=== PATIENT | female | born 1945 | race Caucasian/White ===

== ENCOUNTER 2019-04-17 10:56 | Emergency (ER) | payer MEDICARE ==
[~2019-04-17 10:56] MED LIST: ALBU8.5H8 IH; BISO1TAB8 PO; ESOM40CA49 PO; FURO40TA4 PO; LANTUS SQ; LOPE-190; METF-436 PO; MONT10TA24 PO; PIOG45TA65 PO; POTA10TA10 PO; SYRI-641; [UNRECOGNIZED DRUG - OTHER] PO
[2019-04-17] MEDS ORDERED: LIDOcaine 1% w/epiNEPHrine 1:200,000 30ml vial IM ONE (13:30)
[2019-04-17] MEDS ORDERED: sulfamethoxazole/trimethoprim DS (800/160mg) tablet PO ONE (14:15)
[2019-04-17] MEDS ORDERED: SULF1TAB49 PO (14:30)
[2019-04-17 14:45] VITALS: BP 166/68
== END 2019-04-17 14:47 | disposition home or self-care (01) ==
LOC: ER 11:43
DX: L02.414 Cutaneous abscess of left upper limb (principal); I25.10 Atherosclerotic heart disease of native coronary artery without angina pectoris; I50.9 Heart failure, unspecified; J44.9 Chronic obstructive pulmonary disease, unspecified; E11.9 Type 2 diabetes mellitus without complications; Z90.49 Acquired absence of other specified parts of digestive tract; Z90.710 Acquired absence of both cervix and uterus; Z98.890 Other specified postprocedural states; Z87.891 Personal history of nicotine dependence; Z88.5 Allergy status to narcotic agent; Z79.4 Long term (current) use of insulin; Z79.84 Long term (current) use of oral hypoglycemic drugs; Z79.899 Other long term (current) drug therapy
CPT/HCPCS: 10060; 99283

== ENCOUNTER 2019-04-20 11:00 | Outpatient (CLI) | payer MEDICARE ==
[~2019-04-20 11:00] MED LIST changes: +SULF1TAB49 PO
== END 2019-04-20 23:59 | disposition home or self-care (01) ==
LOC: LAB SPEC 11:00
PROVIDERS: ATTEND Orthopaedic Surgery
DX: S41.002A Unspecified open wound of left shoulder, initial encounter (principal); I11.0 Hypertensive heart disease with heart failure; I50.9 Heart failure, unspecified; J44.9 Chronic obstructive pulmonary disease, unspecified; E11.9 Type 2 diabetes mellitus without complications; X58.XXXA Exposure to other specified factors, initial encounter; Y93.89 Activity, other specified; Y92.89 Other specified places as the place of occurrence of the external cause; Y99.8 Other external cause status
CPT/HCPCS: 87070; 87075

== ENCOUNTER 2020-04-29 13:17 | Emergency (ER) | payer MEDICARE ==
[~2020-04-29] VITALS: Ht 160 cm; Wt 63.6 kg
[~2020-04-29 13:17] MED LIST changes: -MONT10TA24 PO; +MONT10TA26 PO; -SULF1TAB49 PO
--- NOTE | 2020-04-29 14:00 | NUR ---
PT IS 74 YO FEMALE C/O CAT BITE TO RT LOWER LEG 1 WEEK AGO, HAS BEEN EVALUATED BY PMD AND PRESCRIBED 2 ANTIBIOTIC, PT HAS BEEN COMPLIANT WITH TAKING MEDICATION PRESCRIBED AND SAID SWELLING AND REDNESS TO RT ANKLE IS IMPROVING BUT SHE WOULD LIKE RABIES SHOT, PT SAID CAT BELONGS TO HER AND HER GRANDSON, HAS NEVER HAD VACCINATIONS, IS NOW "SICK...NOT EATING, VOMITING", PT IS WAITING TO BE EVALUATED BY PROVIDER
--- NOTE | 2020-04-29 14:01 | NUR ---
PT ALSO C/O FEVER AT HOME RANGING FROM 98 TO 99DEGREES
[2020-04-29] MEDS ORDERED: rabies immune globulin/PF 150 unit/ml inj IMVAC STA (14:18)
[2020-04-29] MEDS ORDERED: rabies vaccine (PCEC)/PF 2.5 unit kit IMVAC ONE (14:20)
[2020-04-29 15:52] VITALS: BP 105/82
== END 2020-04-29 15:54 | disposition home or self-care (01) ==
LOC: ER 13:18
DX: S81.831A Puncture wound without foreign body, right lower leg, initial encounter (principal); L03.115 Cellulitis of right lower limb; M79.671 Pain in right foot; M25.471 Effusion, right ankle; I25.10 Atherosclerotic heart disease of native coronary artery without angina pectoris; I50.9 Heart failure, unspecified; J44.9 Chronic obstructive pulmonary disease, unspecified; E11.9 Type 2 diabetes mellitus without complications; Z90.89 Acquired absence of other organs; Z90.49 Acquired absence of other specified parts of digestive tract; Z90.710 Acquired absence of both cervix and uterus; Z98.890 Other specified postprocedural states; Z88.5 Allergy status to narcotic agent; Z79.4 Long term (current) use of insulin; Z79.899 Other long term (current) drug therapy; W55.01XA Bitten by cat, initial encounter; Y93.89 Activity, other specified; Y92.89 Other specified places as the place of occurrence of the external cause; Y99.8 Other external cause status
CPT/HCPCS: 90375; 90471; 90675; 96372; 99284

== ENCOUNTER 2020-05-02 08:36 | Emergency (ER) | payer MEDICARE ==
[~2020-05-02] VITALS: Ht 160 cm; Wt 63.6 kg
[2020-05-02] MEDS ORDERED: rabies vaccine (PCEC)/PF 2.5 unit kit IMVAC ONE (09:15)
[2020-05-02 09:36] VITALS: BP 137/62
== END 2020-05-02 09:37 | disposition home or self-care (01) ==
LOC: ER 08:37
DX: R50.9 Fever, unspecified (principal); M79.89 Other specified soft tissue disorders; W55.01XD Bitten by cat, subsequent encounter; Y93.89 Activity, other specified; Y92.89 Other specified places as the place of occurrence of the external cause; Y99.8 Other external cause status
CPT/HCPCS: 90471; 90675; 99281

== ENCOUNTER 2020-05-06 09:16 | Emergency (ER) | payer MEDICARE ==
[~2020-05-06] VITALS: Ht 160 cm; Wt 64.6 kg
[2020-05-06] MEDS ORDERED: rabies vaccine (PCEC)/PF 2.5 unit kit IMVAC ONE (11:05)
[2020-05-06 11:28] VITALS: BP 159/70
== END 2020-05-06 11:29 | disposition home or self-care (01) ==
LOC: ER 09:16
DX: S91.032D Puncture wound without foreign body, left ankle, subsequent encounter (principal); I25.10 Atherosclerotic heart disease of native coronary artery without angina pectoris; I50.9 Heart failure, unspecified; J44.9 Chronic obstructive pulmonary disease, unspecified; E11.9 Type 2 diabetes mellitus without complications; Z90.89 Acquired absence of other organs; Z90.49 Acquired absence of other specified parts of digestive tract; Z90.710 Acquired absence of both cervix and uterus; Z98.890 Other specified postprocedural states; Z88.5 Allergy status to narcotic agent; Z79.4 Long term (current) use of insulin; Z79.899 Other long term (current) drug therapy; W55.01XD Bitten by cat, subsequent encounter
CPT/HCPCS: 90471; 90675; 99281

== ENCOUNTER 2020-05-13 11:04 | Emergency (ER) | payer MEDICARE ==
[2020-05-13 11:44] VITALS: BP 160/70
[2020-05-13] MEDS ORDERED: rabies vaccine (PCEC)/PF 2.5 unit kit IMVAC ONE (13:05)
--- NOTE | 2020-05-13 13:45 | NUR ---
Patient seen and assessed by provider.
== END 2020-05-13 14:03 | disposition home or self-care (01) ==
LOC: ER 11:43
DX: S81.851D Open bite, right lower leg, subsequent encounter (principal); I25.10 Atherosclerotic heart disease of native coronary artery without angina pectoris; I50.9 Heart failure, unspecified; J44.9 Chronic obstructive pulmonary disease, unspecified; E11.9 Type 2 diabetes mellitus without complications; Z90.89 Acquired absence of other organs; Z90.49 Acquired absence of other specified parts of digestive tract; Z90.710 Acquired absence of both cervix and uterus; Z98.890 Other specified postprocedural states; Z88.5 Allergy status to narcotic agent; Z79.4 Long term (current) use of insulin; Z79.899 Other long term (current) drug therapy; X58.XXXD Exposure to other specified factors, subsequent encounter
CPT/HCPCS: 90471; 90675; 99281

== ENCOUNTER 2022-09-07 12:04 | Inpatient (IN) | payer MEDICARE ==
[~2022-09-07] VITALS: Ht 157.5 cm; Wt 63.5 kg
[~2022-09-07 12:04] MED LIST changes: +ADV50250 IH; +ALBU8.5H17 IH; -ALBU8.5H8 IH; +ATOR40TA72 PO; +BISO-2 PO; -BISO1TAB8 PO; +INSU100V41 SUBCUT; +IPRA3AMP31 NEB; +LACT1TAB11 PO; -LANTUS SQ; -LOPE-190; +LOSA50TA64 PO; -METF-436 PO; +MONT-40 PO; -MONT10TA26 PO; +NOVLG SQ; -PIOG45TA65 PO; +POTA-188 PO; -POTA10TA10 PO; +SEMA0.25 SUBCUT; -SYRI-641; -[UNRECOGNIZED DRUG - OTHER] PO
[2022-09-07 12:28] LABS: BASOPHILS # (AUTO) 0.1 X10'3 (0-0.2); HEMATOCRIT 41.5 % (35.0-45.0)
[2022-09-07 12:29] LABS: BASOPHILS % (AUTO) 0.2 % (0-1); EOSINOPHILS % (AUTO) 0.1 % (0-6); HEMOGLOBIN 13.5 g/dl (12.0-16.0); MEAN CORPUSCULAR HEMOGLOBIN 28.8 PG (27.0-31.0); MEAN CORPUSCULAR HGB CONC 32.4 g/dL (33.0-36.5); MEAN CORPUSCULAR VOLUME 88.7 FL (78-98); MEAN PLATELET VOLUME 7.8 FL (7.4-10.4); MONOCYTES # (AUTO) 2.8 X10'3 (0-0.9); MONOCYTES % (AUTO) 8.5 % (2-12); NEUTROPHILS # (AUTO) 28.9 X10'3 (1.8-7.7); NEUTROPHILS % (AUTO) 88.2 % (42-75); PLATELET COUNT 706 X10'3 (140-440); RED BLOOD COUNT 4.68 X10'6 (4.20-5.60); RED CELL DISTRIBUTION WIDTH 14.9 % (11.5-14.5)
[2022-09-07 12:42] LABS: WHITE BLOOD COUNT 32.7 X10'3 (4.5-11.0)
[2022-09-07] MEDS ORDERED: normal saline 1000ML IV soln IV ONE (12:45)
[2022-09-07] MEDS ORDERED: vancomycin/NS 1 GM ADD-VANTAGE 250 ML IV ONE (12:45)
[2022-09-07 12:53] LABS: ALANINE AMINOTRANSFERASE 48 U/L (12-78); ALBUMIN 2.4 G/DL (3.4-5.0); ALBUMIN/GLOBULIN RATIO 0.5 (1.1-1.5); ALKALINE PHOSPHATASE 135 IU/L (46-116); ANION GAP 9 (8-16); ASPARTATE AMINO TRANSFERASE 31 U/L (10-37); BILIRUBIN,TOTAL 0.4 MG/DL (0.1-1.0); BLOOD UREA NITROGEN 23 MG/DL (7-18); BUN/CREATININE RATIO 32.9 (6.6-38.0); CALCIUM 9.9 MG/DL (8.5-10.1); CHLORIDE 93 MMOL/L (99-107); GLUCOSE 262 MG/DL (70-104); POTASSIUM 3.9 MMOL/L (3.5-5.1); SODIUM 131 MMOL/L (135-145); TOTAL CARBON DIOXIDE 29.2 MMOL/L (24-32); TOTAL PROTEIN 6.9 G/DL (6.4-8.2); eGFR 81 ML/MIN
[2022-09-07] MEDS ORDERED: cefTAZidime inj 2 GM in normal saline 100ml IV soln 100 ML IV STA (12:59)
[2022-09-07 13:08] LABS: PLATELET ESTIMATE INCREASED; TOTAL CELLS COUNTED 100
[2022-09-07] MEDS ORDERED: ipratropium/albuterol 3ml nebule NEB ONE (13:20)
[2022-09-07] MEDS ORDERED: methylPREDNISolone sod succ 125mg/2ml vial IV ONE (13:20)
[2022-09-07] MEDS ORDERED: ipratropium/albuterol 3ml nebule NEB PRN (14:05)
[2022-09-07] MEDS ORDERED: acetaminophen 650mg rectal suppository RC PRN (14:05)
[2022-09-07] MEDS ORDERED: HYDROmorphone inj. 0.5 MG/0.5 ML DISP.SYRIN IV PRN (14:05)
[2022-09-07] MEDS ORDERED: magnesium hydroxide 30ml (MOM) UD suspension PO PRN (14:05)
[2022-09-07] MEDS ORDERED: potassium Cl 20 mEq SR tablet PO PRN (14:05)
[2022-09-07] MEDS ORDERED: ondansetron/PF 4mg/2ml inj IV PRN (14:05)
[2022-09-07] MEDS ORDERED: HYDROmorphone/PF 0.2 MG/ML SYRINGE IV PRN (14:05)
[2022-09-07] MEDS ORDERED: HYDROcodone/acetaminophen 5mg/325mg tablet PO PRN (14:05)
[2022-09-07] MEDS ORDERED: normal saline 1000ml 1,000 ML IV SCH (14:05)
[2022-09-07] MEDS ORDERED: potassium Cl 40MEQ/1/2NS 520ml 520 ML IV PRN (14:05)
[2022-09-07] MEDS ORDERED: mag hydrox/Alum hydrox/simeth 30ml oral suspension PO PRN (14:05)
[2022-09-07] MEDS ORDERED: metoclopramide 5 mg/ml inj IV PRN (14:05)
[2022-09-07] MEDS ORDERED: magnesium 4gm in 100ml NS 100 ML IV PRN (14:05)
[2022-09-07] MEDS ORDERED: HYDROcodone/acetaminophen 10/325mg tab PO PRN (14:05)
[2022-09-07] MEDS ORDERED: ondansetron 4mg rapidly disintigrating tab PO PRN (14:05)
[2022-09-07] MEDS ORDERED: acetaminophen 325mg tablet PO PRN ×2 (14:05)
[2022-09-07] MEDS ORDERED: magnesium Cl slow-release 64mg tablet PO PRN (14:05)
[2022-09-07] MEDS ORDERED: bisacodyl 10mg suppository rectal RC PRN (14:05)
--- NOTE | 2022-09-07 14:44 | NUR ---
Dr. Portillo at bedside.
[2022-09-07] MEDS: ipratropium/albuterol 3ml nebule NEB SCH ×3 (15:00→23:40)
[2022-09-07] MEDS ORDERED: furosemide 40mg/4ml inj IV ONE (15:45)
[2022-09-07] MEDS ORDERED: MESSAGE TO PHARMACY PO ONE (15:45)
[2022-09-07] MEDS ORDERED: PERFLUTREN PROTEIN-A MICROSPHR (Optison) 0.22 MG/ML 3ML VIAL IV ONE (15:45)
[2022-09-07] MEDS ORDERED: DEXTROSE 15 GM of carb/4 tabs (each vial/BOTTLE has 4 tablets) PO PRN ×2 (15:45)
[2022-09-07] MEDS ORDERED: dextrose 50%-water 50ml dispensing syringe IV PRN ×2 (15:45)
[2022-09-07] MEDS ORDERED: glucagon, human recombinant 1mg kit SUBCUT PRN (15:45)
[2022-09-07 15:57] LABS: MAGNESIUM 1.6 MG/DL (1.5-2.4)
[2022-09-07] MEDS: cefTAZidime inj. 1 GM in normal saline 100ml IV soln 100 ML IV SCH (16:00)
[2022-09-07] MEDS ORDERED: INSU100I31 SQ (17:45)
[2022-09-07] MEDS ORDERED: CEFD300C21 PO (17:45)
[2022-09-07] MEDS ORDERED: AMLO-708 PO (17:45)
[2022-09-07] MEDS ORDERED: FLUT200B3 INH (17:45)
[2022-09-07] MEDS ORDERED: BISO-2 PO (17:45)
[2022-09-07] MEDS ORDERED: BISO5TAB29 PO (17:45)
[2022-09-07] MEDS ORDERED: FURO40TA4 PO (17:46)
[2022-09-07] MEDS ORDERED: POTA-188 PO (17:46)
[2022-09-07] MEDS ORDERED: PRED10TA PO (17:49)
[2022-09-07] MEDS: furosemide 40mg/4ml inj IV SCH (19:40)
[2022-09-07] MEDS: docusate sod 100mg capsule PO SCH (20:00)
[2022-09-07] MEDS: K and/or MAG REPLACEMENT MC SCH (20:13)
[2022-09-07] MEDS: insulin glargine (Lantus) pen - multi-dose SQ SCH (20:29)
[2022-09-07] MEDS: methylPREDNISolone sod succ 125mg/2ml vial IV SCH (20:29)
[2022-09-07] MEDS ORDERED: temazepam 15mg capsule PO PRN (21:00)
[2022-09-08] MEDS: cefTAZidime inj. 1 GM in normal saline 100ml IV soln 100 ML IV SCH ×3 (00:18→16:00)
[2022-09-08] MEDS: methylPREDNISolone sod succ 125mg/2ml vial IV SCH ×4 (02:00→21:23)
[2022-09-08 03:40] LABS: MEAN CORPUSCULAR HEMOGLOBIN 29.3 PG (27.0-31.0); MEAN PLATELET VOLUME 7.8 FL (7.4-10.4)
[2022-09-08 03:42] LABS: BASOPHILS # (AUTO) 0.1 X10'3 (0-0.2); BASOPHILS % (AUTO) 0.8 % (0-1); EOSINOPHILS % (AUTO) 0 % (0-6); HEMATOCRIT 39.4 % (35.0-45.0); HEMOGLOBIN 13.2 g/dl (12.0-16.0); LYMPHOCYTES # (AUTO) 0.6 X10'3 (1.1-4.8); LYMPHOCYTES % (AUTO) 4.2 % (21-51); MEAN CORPUSCULAR HGB CONC 33.5 g/dL (33.0-36.5); MEAN CORPUSCULAR VOLUME 87.5 FL (78-98); MONOCYTES # (AUTO) 0.4 X10'3 (0-0.9); MONOCYTES % (AUTO) 2.7 % (2-12); NEUTROPHILS # (AUTO) 13.9 X10'3 (1.8-7.7); NEUTROPHILS % (AUTO) 92.3 % (42-75); PLATELET COUNT 625 X10'3 (140-440); RED CELL DISTRIBUTION WIDTH 15.2 % (11.5-14.5); WHITE BLOOD COUNT 15.1 X10'3 (4.5-11.0)
[2022-09-08] MEDS: ipratropium/albuterol 3ml nebule NEB SCH ×6 (03:51→23:55)
[2022-09-08 03:58] LABS: ALANINE AMINOTRANSFERASE 48 U/L (12-78); ALBUMIN 2.3 G/DL (3.4-5.0); ALBUMIN/GLOBULIN RATIO 0.5 (1.1-1.5); ALKALINE PHOSPHATASE 131 IU/L (46-116); ANION GAP 7 (8-16); ASPARTATE AMINO TRANSFERASE 26 U/L (10-37); BILIRUBIN,TOTAL 0.3 MG/DL (0.1-1.0); BLOOD UREA NITROGEN 23 MG/DL (7-18); BUN/CREATININE RATIO 27.4 (6.6-38.0); CALCIUM 9.3 MG/DL (8.5-10.1); CHLORIDE 96 MMOL/L (99-107); CHOL/HDL RATIO 1.9 (0.00-4.99); CHOLESTEROL 122 MG/DL (0-200); CREATININE 0.84 MG/DL (0.40-0.90); GLUCOSE 342 MG/DL (70-104); HDL CHOLESTEROL 65 MG/DL (35-60); LDL CHOLESTEROL 43 MG/DL (50-100); PHOSPHORUS 3.3 MG/DL (2.3-4.5); SODIUM 137 MMOL/L (135-145); TOTAL CARBON DIOXIDE 34.2 MMOL/L (24-32); TOTAL PROTEIN 6.6 G/DL (6.4-8.2); TRIGLYCERIDES 100 MG/DL (20-135); eGFR 66 ML/MIN
[2022-09-08 05:26] LABS: HEMOGLOBIN A1C 8.4 % (4.5-6.2)
--- NOTE | 2022-09-08 07:05 | NUR ---
report from janak acevedo for continaution of care. pt is awake ao4 deneis any chest discomfort at this time. resp even unlabored skin w/d/i pink.
[2022-09-08] MEDS: docusate sod 100mg capsule PO SCH ×2 (08:00→20:00)
[2022-09-08] MEDS: K and/or MAG REPLACEMENT MC SCH ×2 (08:00→20:00)
[2022-09-08] MEDS: furosemide 40mg/4ml inj IV SCH ×2 (09:16→21:29)
[2022-09-08] MEDS: enoxaparin 40mg/0.4ml syringe SUBCUT SCH (09:17)
[2022-09-08] MEDS: insulin Lispro (HumaLOG) vial - multi-dose SQ SCH ×3 (09:57→18:13)
--- NOTE | 2022-09-08 10:55 | NUR ---
report to janak daniel for continuation of care.
--- NOTE | 2022-09-08 11:05 | NUR ---
Patient in ER. I have received report from SURJIT Segovia and had the opportunity to ask questions and will assume assume patient care when pt arrives to room 1340A.
[2022-09-08 11:10] VITALS: BP 140/69
--- NOTE | 2022-09-08 11:10 | NUR ---
VSS, pt is in room 1340A, pt is in no distress at this time, call light within pt's reach and pt is comfortable in bed.
[2022-09-08] MEDS ORDERED: ALBU17AE26 PO (11:42)
[2022-09-08] MEDS ORDERED: ASPI-611 PO (11:45)
[2022-09-08] MEDS ORDERED: LOSA50TA3 PO (11:45)
[2022-09-08] MEDS: vancomycin/NS 1 GM ADD-VANTAGE 250 ML IV SCH (13:25)
[2022-09-08 14:39] VITALS: BP 126/55
[2022-09-08 17:42] VITALS: BP 147/53
[2022-09-08 18:00] VITALS: BP 173/50
--- NOTE | 2022-09-08 18:10 | NUR ---
Problems reprioritized. Patient report given, questions answered & plan of care reviewed with SURJIT Conde, pt will be going to room 345B.
--- NOTE | 2022-09-08 18:15 | NUR ---
VSS, pt is in room #345B, all pt belongings transferred with pt, pt is in the bed and in no distress at this time, call light within pt's reach and pt is comfortable at this time.
--- NOTE | 2022-09-08 19:00 | NUR ---
Patient in room [facility]. I have received report from SURJIT Lantigua and had the opportunity to ask questions and assume patient care.
[2022-09-08] MEDS: insulin glargine (Lantus) pen - multi-dose SQ SCH (21:00)
[2022-09-08 22:00] VITALS: BP 139/65
[2022-09-09] MEDS: cefTAZidime inj. 1 GM in normal saline 100ml IV soln 100 ML IV SCH ×3 (00:39→16:25)
[2022-09-09] MEDS: methylPREDNISolone sod succ 125mg/2ml vial IV SCH ×4 (02:10→19:29)
[2022-09-09] MEDS: ipratropium/albuterol 3ml nebule NEB SCH ×6 (03:06→23:20)
[2022-09-09 06:16] LABS: EOSINOPHILS % (AUTO) 0 % (0-6); HEMOGLOBIN 12.2 g/dl (12.0-16.0)
[2022-09-09 06:19] LABS: BASOPHILS # (AUTO) 0.1 X10'3 (0-0.2); BASOPHILS % (AUTO) 0.4 % (0-1); HEMATOCRIT 38.3 % (35.0-45.0); LYMPHOCYTES # (AUTO) 0.8 X10'3 (1.1-4.8); LYMPHOCYTES % (AUTO) 3.4 % (21-51); MEAN CORPUSCULAR HEMOGLOBIN 28.3 PG (27.0-31.0); MEAN CORPUSCULAR VOLUME 88.6 FL (78-98); MONOCYTES # (AUTO) 0.6 X10'3 (0-0.9); MONOCYTES % (AUTO) 2.4 % (2-12); NEUTROPHILS # (AUTO) 21.8 X10'3 (1.8-7.7); NEUTROPHILS % (AUTO) 93.8 % (42-75); PLATELET COUNT 665 X10'3 (140-440); RED BLOOD COUNT 4.32 X10'6 (4.20-5.60); RED CELL DISTRIBUTION WIDTH 15.5 % (11.5-14.5); WHITE BLOOD COUNT 23.3 X10'3 (4.5-11.0)
--- NOTE | 2022-09-09 06:33 | NUR ---
Problems reprioritized. Patient report given, questions answered & plan of care reviewed with SURJIT Diaz.
[2022-09-09 07:00] VITALS: BP 157/61
[2022-09-09 07:07] LABS: ALANINE AMINOTRANSFERASE 46 U/L (12-78); ALBUMIN 2.4 G/DL (3.4-5.0); ALBUMIN/GLOBULIN RATIO 0.6 (1.1-1.5); ALKALINE PHOSPHATASE 115 IU/L (46-116); ANION GAP 9 (8-16); ASPARTATE AMINO TRANSFERASE 30 U/L (10-37); BILIRUBIN,TOTAL 0.3 MG/DL (0.1-1.0); BLOOD UREA NITROGEN 28 MG/DL (7-18); BUN/CREATININE RATIO 42.4 (6.6-38.0); CALCIUM 9.9 MG/DL (8.5-10.1); CHLORIDE 96 MMOL/L (99-107); CREATININE 0.66 MG/DL (0.40-0.90); GLUCOSE 161 MG/DL (70-104); PHOSPHORUS 2.8 MG/DL (2.3-4.5); POTASSIUM 3.2 MMOL/L (3.5-5.1); SODIUM 136 MMOL/L (135-145); TOTAL CARBON DIOXIDE 31.1 MMOL/L (24-32); TOTAL PROTEIN 6.3 G/DL (6.4-8.2); eGFR 87 ML/MIN
[2022-09-09] MEDS: furosemide 40mg/4ml inj IV SCH ×2 (07:57→19:29)
[2022-09-09] MEDS: docusate sod 100mg capsule PO SCH ×2 (08:00→19:32)
[2022-09-09] MEDS: K and/or MAG REPLACEMENT MC SCH ×2 (08:00→20:00)
[2022-09-09] MEDS: enoxaparin 40mg/0.4ml syringe SUBCUT SCH (08:00)
[2022-09-09] MEDS: insulin Lispro (HumaLOG) vial - multi-dose SQ SCH ×3 (09:17→19:25)
--- NOTE | 2022-09-09 10:40 | NUR ---
DM Consult: Pt hx T2DM A1C 8.4% on albuterol inhaler at home in addition to Novolog, tresiba daily, and ozempic Q7D per EMR. A1C appropriate given pt age; DM ed deferred at this time. Addendum: 09/09/22 at [address] Amended: Links added.
[2022-09-09 11:00] VITALS: BP 139/47
[2022-09-09] MEDS: vancomycin/NS 1 GM ADD-VANTAGE 250 ML IV SCH (14:08)
[2022-09-09] MEDS: potassium Cl 20 mEq SR tablet PO PRN ×2 (16:25→21:48)
[2022-09-09 18:00] VITALS: BP 151/58
--- NOTE | 2022-09-09 18:24 | NUR ---
Problems reprioritized. Patient report given, questions answered & plan of care reviewed with SURJIT Nugent.
--- NOTE | 2022-09-09 18:26 | NUR ---
Patient in room [facility]. I have received report from AGUILAR EDDY and had the opportunity to ask questions and assume patient care.
[2022-09-09] MEDS: insulin glargine (Lantus) pen - multi-dose SQ SCH (21:00)
--- NOTE | 2022-09-09 21:00 | NUR ---
PATIENT REFUSED LANTUS. EDUCATED PATIENT CONCERNING DANGERS OF HYPERGLYCEMIA.
[2022-09-09 22:00] VITALS: BP 161/68
[2022-09-10] MEDS: methylPREDNISolone sod succ 125mg/2ml vial IV SCH ×2 (02:30→09:03)
[2022-09-10] MEDS: ipratropium/albuterol 3ml nebule NEB SCH ×6 (03:13→23:43)
[2022-09-10 06:00] VITALS: BP_SYST 125; BP_SYST 151; BP_DIAS 55; BP_DIAS 61
--- NOTE | 2022-09-10 06:13 | NUR ---
Problems reprioritized. Patient report given, questions answered & plan of care reviewed with AGUILAR EDDY.
[2022-09-10 06:23] LABS: EOSINOPHILS % (AUTO) 0 % (0-6)
[2022-09-10 06:26] LABS: BASOPHILS % (AUTO) 0.1 % (0-1); HEMATOCRIT 39.1 % (35.0-45.0); LYMPHOCYTES # (AUTO) 0.7 X10'3 (1.1-4.8); LYMPHOCYTES % (AUTO) 2.9 % (21-51); MEAN CORPUSCULAR HEMOGLOBIN 29.2 PG (27.0-31.0); MEAN CORPUSCULAR HGB CONC 33.2 g/dL (33.0-36.5); MEAN CORPUSCULAR VOLUME 87.9 FL (78-98); MEAN PLATELET VOLUME 7.6 FL (7.4-10.4); MONOCYTES # (AUTO) 0.4 X10'3 (0-0.9); MONOCYTES % (AUTO) 1.9 % (2-12); NEUTROPHILS # (AUTO) 22.2 X10'3 (1.8-7.7); NEUTROPHILS % (AUTO) 95.1 % (42-75); PLATELET COUNT 757 X10'3 (140-440); RED BLOOD COUNT 4.44 X10'6 (4.20-5.60); RED CELL DISTRIBUTION WIDTH 15.2 % (11.5-14.5); WHITE BLOOD COUNT 23.3 X10'3 (4.5-11.0)
[2022-09-10 06:57] LABS: ALANINE AMINOTRANSFERASE 58 U/L (12-78); ALBUMIN 2.9 G/DL (3.4-5.0); ALBUMIN/GLOBULIN RATIO 0.7 (1.1-1.5); ALKALINE PHOSPHATASE 114 IU/L (46-116); ANION GAP 6 (8-16); ASPARTATE AMINO TRANSFERASE 34 U/L (10-37); BILIRUBIN,TOTAL 0.5 MG/DL (0.1-1.0); BLOOD UREA NITROGEN 30 MG/DL (7-18); CALCIUM 10.1 MG/DL (8.5-10.1); CHLORIDE 97 MMOL/L (99-107); CREATININE 0.81 MG/DL (0.40-0.90); GLUCOSE 240 MG/DL (70-104); MAGNESIUM 2.1 MG/DL (1.5-2.4); PHOSPHORUS 3.2 MG/DL (2.3-4.5); POTASSIUM 4.3 MMOL/L (3.5-5.1); SODIUM 136 MMOL/L (135-145); TOTAL CARBON DIOXIDE 32.8 MMOL/L (24-32); eGFR 68 ML/MIN
[2022-09-10 07:00] VITALS: BP 151/61
[2022-09-10] MEDS: enoxaparin 40mg/0.4ml syringe SUBCUT SCH (08:00)
[2022-09-10] MEDS: docusate sod 100mg capsule PO SCH ×2 (08:00→20:00)
[2022-09-10] MEDS: K and/or MAG REPLACEMENT MC SCH ×2 (08:00→19:41)
[2022-09-10] MEDS: cefTAZidime inj. 1 GM in normal saline 100ml IV soln 100 ML IV SCH ×2 (09:01→20:11)
[2022-09-10] MEDS: furosemide 40mg/4ml inj IV SCH ×2 (09:02→20:11)
[2022-09-10] MEDS: insulin Lispro (HumaLOG) vial - multi-dose SQ SCH ×4 (09:14→18:51)
[2022-09-10 10:00] VITALS: BP 157/32
[2022-09-10] MEDS ORDERED: VANCOMYCIN LEVEL IV ONE (12:30)
[2022-09-10] MEDS: methylPREDNISolone sod succ/PF 40mg inj. IV SCH ×2 (14:19→20:12)
[2022-09-10] MEDS: VANCOmycin 1250MG/NS 250ml Bag 250 ML IV SCH (14:21)
[2022-09-10 18:00] VITALS: BP 159/72
--- NOTE | 2022-09-10 18:18 | NUR ---
Problems reprioritized. Patient report given, questions answered & plan of care reviewed with SURJIT Nugent.
--- NOTE | 2022-09-10 18:33 | NUR ---
Patient in room [facility]. I have received report from AGUILAR EDDY and had the opportunity to ask questions and assume patient care.
[2022-09-10] MEDS: insulin glargine (Lantus) pen - multi-dose SQ SCH (21:00)
--- NOTE | 2022-09-10 21:00 | NUR ---
PATIENT REFUSED TO HAVE LANTUS FOR ACHS BLOOD GLUCOSE. BG 103
[2022-09-10 22:00] VITALS: BP 115/61
[2022-09-11] MEDS: ipratropium/albuterol 3ml nebule NEB SCH ×6 (03:00→23:16)
[2022-09-11 06:00] VITALS: BP 156/64
[2022-09-11 06:08] LABS: EOSINOPHILS % (AUTO) 0 % (0-6); MONOCYTES # (AUTO) 0.7 X10'3 (0-0.9)
[2022-09-11 06:09] LABS: BASOPHILS # (AUTO) 0.2 X10'3 (0-0.2); BASOPHILS % (AUTO) 0.9 % (0-1); HEMATOCRIT 38.8 % (35.0-45.0); HEMOGLOBIN 12.7 g/dl (12.0-16.0); LYMPHOCYTES # (AUTO) 0.7 X10'3 (1.1-4.8); LYMPHOCYTES % (AUTO) 3.3 % (21-51); MEAN CORPUSCULAR HEMOGLOBIN 28.9 PG (27.0-31.0); MEAN CORPUSCULAR HGB CONC 32.8 g/dL (33.0-36.5); MEAN CORPUSCULAR VOLUME 88.3 FL (78-98); MONOCYTES % (AUTO) 3.6 % (2-12); NEUTROPHILS # (AUTO) 18.3 X10'3 (1.8-7.7); NEUTROPHILS % (AUTO) 92.2 % (42-75); PLATELET COUNT 667 X10'3 (140-440); RED BLOOD COUNT 4.39 X10'6 (4.20-5.60); RED CELL DISTRIBUTION WIDTH 14.9 % (11.5-14.5); WHITE BLOOD COUNT 19.9 X10'3 (4.5-11.0)
[2022-09-11 06:22] LABS: ALANINE AMINOTRANSFERASE 50 U/L (12-78); ALBUMIN 2.7 G/DL (3.4-5.0); ALBUMIN/GLOBULIN RATIO 0.8 (1.1-1.5); ALKALINE PHOSPHATASE 107 IU/L (46-116); ANION GAP 3 (8-16); ASPARTATE AMINO TRANSFERASE 26 U/L (10-37); BILIRUBIN,TOTAL 0.4 MG/DL (0.1-1.0); BLOOD UREA NITROGEN 28 MG/DL (7-18); BUN/CREATININE RATIO 33.3 (6.6-38.0); CALCIUM 9.4 MG/DL (8.5-10.1); CHLORIDE 97 MMOL/L (99-107); CREATININE 0.84 MG/DL (0.40-0.90); GLUCOSE 246 MG/DL (70-104); MAGNESIUM 1.9 MG/DL (1.5-2.4); PHOSPHORUS 3.1 MG/DL (2.3-4.5); POTASSIUM 4.1 MMOL/L (3.5-5.1); SODIUM 137 MMOL/L (135-145); TOTAL CARBON DIOXIDE 37.3 MMOL/L (24-32); TOTAL PROTEIN 6.1 G/DL (6.4-8.2); eGFR 66 ML/MIN
--- NOTE | 2022-09-11 06:36 | NUR ---
Problems reprioritized. Patient report given, questions answered & plan of care reviewed with JACQUELYN EDDY.
[2022-09-11] MEDS: enoxaparin 40mg/0.4ml syringe SUBCUT SCH (07:38)
[2022-09-11] MEDS: cefTAZidime inj. 1 GM in normal saline 100ml IV soln 100 ML IV SCH ×2 (07:38→19:34)
[2022-09-11] MEDS: methylPREDNISolone sod succ/PF 40mg inj. IV SCH (07:39)
[2022-09-11] MEDS: furosemide 40mg/4ml inj IV SCH ×2 (07:39→19:34)
[2022-09-11] MEDS: K and/or MAG REPLACEMENT MC SCH ×2 (07:40→19:30)
[2022-09-11] MEDS: docusate sod 100mg capsule PO SCH ×2 (08:00→19:51)
[2022-09-11] MEDS: insulin Lispro (HumaLOG) vial - multi-dose SQ SCH ×3 (09:07→19:37)
--- NOTE | 2022-09-11 09:09 | NUR ---
PT DOES NOT WANT 35 UNITS OF PROTOCOL INSULIN. SHE FEELS ONLY COMFORTABLE W/ 20UNITS. 20UNITS GIVEN PER PT REQUEST.
[2022-09-11 10:00] VITALS: BP 140/60
[2022-09-11] MEDS: VANCOmycin 1250MG/NS 250ml Bag 250 ML IV SCH (14:29)
[2022-09-11] MEDS ORDERED: predniSONE 20 mg tablet PO ONE (14:50)
[2022-09-11] MEDS: pantoprazole 40mg Tablet.DR PO SCH (15:08)
[2022-09-11] MEDS: nystatin 500,000 unit/5ML UD oral suspension PO SCH ×2 (15:49→21:50)
[2022-09-11 18:00] VITALS: BP 160/66
--- NOTE | 2022-09-11 18:28 | NUR ---
Report given back to Tolu EDDY, all questions answered at this time.
--- NOTE | 2022-09-11 19:17 | NUR ---
Patient in room [facility]. I have received report from LANCE Espana RN and had the opportunity to ask questions and assume patient care.
[2022-09-11] MEDS: potassium chloride 10mEq ER tablet PO SCH (19:35)
[2022-09-11] MEDS ORDERED: montelukast 10mg tablet PO SCH (21:00)
[2022-09-11] MEDS: insulin glargine (Lantus) pen - multi-dose SQ SCH (21:00)
--- NOTE | 2022-09-11 21:54 | NUR ---
PATIENT HAS BEEN REFUSING LANTUS. EDUCATED PATIENT.
[2022-09-11 22:00] VITALS: BP 152/60
[2022-09-12] MEDS: ipratropium/albuterol 3ml nebule NEB SCH ×3 (03:00→11:00)
--- NOTE | 2022-09-12 06:21 | NUR ---
Patient in room [facility]. I have received report from layla briceno and had the opportunity to ask questions and assume patient care.
--- NOTE | 2022-09-12 06:26 | NUR ---
Problems reprioritized. Patient report given, questions answered & plan of care reviewed with CLAUDIA EDDY.
[2022-09-12 06:31] VITALS: BP 155/72
[2022-09-12 06:56] LABS: ALANINE AMINOTRANSFERASE 52 U/L (12-78); ALBUMIN 2.8 G/DL (3.4-5.0); ALBUMIN/GLOBULIN RATIO 0.8 (1.1-1.5); ALKALINE PHOSPHATASE 110 IU/L (46-116); ANION GAP 3 (8-16); ASPARTATE AMINO TRANSFERASE 27 U/L (10-37); BILIRUBIN,TOTAL 0.4 MG/DL (0.1-1.0); BLOOD UREA NITROGEN 29 MG/DL (7-18); BUN/CREATININE RATIO 31.9 (6.6-38.0); CALCIUM 9.3 MG/DL (8.5-10.1); CHLORIDE 95 MMOL/L (99-107); CREATININE 0.91 MG/DL (0.40-0.90); GLUCOSE 185 MG/DL (70-104); PHOSPHORUS 2.8 MG/DL (2.3-4.5); POTASSIUM 3.6 MMOL/L (3.5-5.1); SODIUM 136 MMOL/L (135-145); TOTAL CARBON DIOXIDE 38.1 MMOL/L (24-32); TOTAL PROTEIN 6.1 G/DL (6.4-8.2); eGFR 60 ML/MIN
[2022-09-12 06:59] LABS: EOSINOPHILS % (AUTO) 0.1 % (0-6); LYMPHOCYTES # (AUTO) 1.9 X10'3 (1.1-4.8); MEAN PLATELET VOLUME 8.2 FL (7.4-10.4)
[2022-09-12 07:01] LABS: BASOPHILS # (AUTO) 0.1 X10'3 (0-0.2); BASOPHILS % (AUTO) 0.6 % (0-1); HEMATOCRIT 40.2 % (35.0-45.0); LYMPHOCYTES % (AUTO) 8.7 % (21-51); MEAN CORPUSCULAR HEMOGLOBIN 28.3 PG (27.0-31.0); MEAN CORPUSCULAR HGB CONC 32.3 g/dL (33.0-36.5); MEAN CORPUSCULAR VOLUME 87.6 FL (78-98); MONOCYTES # (AUTO) 1.4 X10'3 (0-0.9); MONOCYTES % (AUTO) 6.4 % (2-12); NEUTROPHILS # (AUTO) 18.4 X10'3 (1.8-7.7); NEUTROPHILS % (AUTO) 84.2 % (42-75); PLATELET COUNT 676 X10'3 (140-440); RED BLOOD COUNT 4.59 X10'6 (4.20-5.60); RED CELL DISTRIBUTION WIDTH 15.1 % (11.5-14.5); WHITE BLOOD COUNT 21.8 X10'3 (4.5-11.0)
[2022-09-12] MEDS: cefTAZidime inj. 1 GM in normal saline 100ml IV soln 100 ML IV SCH (07:23)
[2022-09-12] MEDS: nystatin 500,000 unit/5ML UD oral suspension PO SCH ×2 (07:24→13:00)
[2022-09-12] MEDS: pantoprazole 40mg Tablet.DR PO SCH (07:24)
[2022-09-12] MEDS: furosemide 40mg/4ml inj IV SCH (07:30)
[2022-09-12] MEDS: docusate sod 100mg capsule PO SCH (07:32)
[2022-09-12] MEDS: enoxaparin 40mg/0.4ml syringe SUBCUT SCH (07:37)
[2022-09-12] MEDS: potassium chloride 10mEq ER tablet PO SCH (07:59)
[2022-09-12] MEDS ORDERED: atenolol 50mg tablet PO SCH (08:00)
[2022-09-12] MEDS ORDERED: aspirin 81mg, enteric-coated 1 TAB TABLET.DR PO SCH (08:00)
[2022-09-12] MEDS: K and/or MAG REPLACEMENT MC SCH (08:00)
[2022-09-12] MEDS ORDERED: losartan 50mg tablet PO SCH (08:00)
[2022-09-12] MEDS ORDERED: predniSONE 20 mg tablet PO SCH (08:30)
--- NOTE | 2022-09-12 09:00 | NUR ---
PT REFUSED INSULIN AND ATENOLOL. I EDUCATED HER ON THE IMPORTANCE OF TAKING THESE MEDICATIONS. WILL NOTIFY
[2022-09-12] MEDS ORDERED: carVEDilol 3.125mg tablet PO ONE (09:40)
--- NOTE | 2022-09-12 09:45 | NUR ---
Page Sent promotional table spacer PAGER ID: [phone] MESSAGE: [address]MM[address]UEL, PT REFUSED ATENOLOL THIS AM AND I SEE NEW ORDER FOR CARVEDILOL. 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 [facility]
[2022-09-12 10:00] VITALS: BP 147/48
[2022-09-12] MEDS ORDERED: PRED10TA PO (11:33)
[2022-09-12] MEDS ORDERED: NYST1000 PO (11:33)
[2022-09-12] MEDS ORDERED: FURO40TA4 PO (11:33)
[2022-09-12] MEDS ORDERED: MUPI22OI30 TOP (11:33)
[2022-09-12] MEDS ORDERED: LEVO-65 PO (11:33)
--- NOTE | 2022-09-12 12:54 | NUR ---
PT REFUSED GOING HOME
--- NOTE | 2022-09-12 13:17 | NUR ---
Initial: Pt admit DX PNA, acute on chronic respiratory failure w/ hypoxemia, CHF, and DM per EMR. PO improving this admit now ~81% avg carb controlled meals meeting estimated protein needs and 93% estimated energy needs. S/p D50 last night for Glu 50-65mg/dl on glycemic protocol though refusing Lantus and receiving Prednisone per EMR. LBM 09/11. No nutrition interventions at this time. Will continue to follow. Rec: 1. continue carb controlled diet 2. routine bowel care 3. weekly wts Addendum: 09/12/22 at [address] Amended: Links added.
--- NOTE | 2022-09-12 13:39 | NUR ---
PT IS STABLE FOR DISCHARGE, IV IS DC, ALL BELONGINGS ARE TAKEN WITH PT, ALL DISCHARGE INFO IS GONE OVER AND SIGNED, WOUND PICTURES WERE TAKEN AND ARE IN THE CHART. PT DID NOT HAVE MEDS IN PHARMACY. SHE WAS WHEELED DOWN IN WHEELCHAIR AND LEFT IN A PRIVATE VEHICLE WITH FAMILY.
[2022-09-12] MEDS ORDERED: amLODIPine 5mg tablet PO SCH (15:02)
[2022-09-12] MEDS ORDERED: carVEDilol 3.125mg tablet PO SCH (20:00)
[2022-09-13] MEDS ORDERED: VANCOMYCIN LEVEL IV ONE (13:30)
== END 2022-09-12 13:35 | disposition home health service (06) | DRG 193 ==
LOC: ER 12:04 → ED HOLD 14:19 → EDBEDREQ 09-08 10:59 → SUR 3N 09-08 18:32
PROVIDERS: ADMIT Family Medicine; ATTEND Family Medicine
DX: J18.9 Pneumonia, unspecified organism (principal); I50.31 Acute diastolic (congestive) heart failure; J96.21 Acute and chronic respiratory failure with hypoxia; B37.0 Candidal stomatitis; J44.1 Chronic obstructive pulmonary disease with (acute) exacerbation; J44.0 Chronic obstructive pulmonary disease with (acute) lower respiratory infection; Z20.822 Contact with and (suspected) exposure to COVID-19; E11.51 Type 2 diabetes mellitus with diabetic peripheral angiopathy without gangrene; K21.9 Gastro-esophageal reflux disease without esophagitis; Y95 Nosocomial condition; Z60.2 Problems related to living alone; K44.9 Diaphragmatic hernia without obstruction or gangrene; E78.5 Hyperlipidemia, unspecified; I11.0 Hypertensive heart disease with heart failure; I25.10 Atherosclerotic heart disease of native coronary artery without angina pectoris; T38.0X5A Adverse effect of glucocorticoids and synthetic analogues, initial encounter; Z90.49 Acquired absence of other specified parts of digestive tract; Z90.711 Acquired absence of uterus with remaining cervical stump; Z99.81 Dependence on supplemental oxygen; Z88.5 Allergy status to narcotic agent; Z88.8 Allergy status to other drugs, medicaments and biological substances; Y92.89 Other specified places as the place of occurrence of the external cause
CPT/HCPCS: 36415; 71045; 80053; 80061; 80202; 82948; 83036; 83605; 83735; 83880; 84100; 84145; 84484; 85007; 85025; 87040; 87081; 87502; 87503; 87635; 93306; 94640; 94664; 94668; 94760; 96365; 96368; 96375; 97116; 97161; 97530; 99285; G0378; J0713; J1650; J1815; J1940; J2920; J2930; J3370; J3490; J7030; J7040; J7512

== ENCOUNTER 2023-04-29 20:20 | Emergency (ER) | payer MEDICARE ==
[~2023-04-29] VITALS: Ht 157.5 cm; Wt 213.6 kg
[~2023-04-29 20:20] MED LIST changes: -ADV50250 IH; +ALBU17AE26 PO; -ALBU8.5H17 IH; +AMLO-708 PO; +ASPI-611 PO; -BISO-2 PO; +BISO5TAB29 PO; -ESOM40CA49 PO; +FLUT200B3 INH; +INSU100I31 SQ; -INSU100V41 SUBCUT; -LACT1TAB11 PO; +LOSA-416 PO; -LOSA50TA64 PO; -NOVLG SQ; +NYST1000 PO; +PRED10TA PO; -SEMA0.25 SUBCUT
[2023-04-29 20:59] VITALS: BP 152/73; PULSE 63; RESP 22; TEMP 99.7; O2SAT 92
[2023-04-29] MEDS ORDERED: LEVO-65 PO ×3 (22:30→23:40)
[2023-04-29] MEDS ORDERED: NIRM1TAB PO ×2 (22:32→23:39)
== END 2023-04-29 23:47 | disposition home or self-care (01) ==
LOC: ER 20:21
DX: U07.1 COVID-19 (principal); R07.89 Other chest pain; J44.9 Chronic obstructive pulmonary disease, unspecified; I25.10 Atherosclerotic heart disease of native coronary artery without angina pectoris; I50.9 Heart failure, unspecified; E11.9 Type 2 diabetes mellitus without complications; Z90.49 Acquired absence of other specified parts of digestive tract; Z90.710 Acquired absence of both cervix and uterus; Z87.891 Personal history of nicotine dependence; Z88.8 Allergy status to other drugs, medicaments and biological substances; Z79.82 Long term (current) use of aspirin; Z79.899 Other long term (current) drug therapy
CPT/HCPCS: 71045; 99283